=== PATIENT | male | born 1965 | race African-American/Black ===

== ENCOUNTER → 2022-09-26 | Outpatient (REF) | payer MEDICARE, MEDICAID ==
[2022-09-28 19:08] LABS: TESTOSTERONE FREE (DIRECT) 9.8 pg/mL (7.2-24.0)
== END ==
LOC: M LAB REF 16:45
PROVIDERS: ATTEND Nurse Practitioner Family
DX: F52.21 Male erectile disorder (principal)

== ENCOUNTER → 2023-01-12 | Outpatient (REF) | payer MEDICARE, MEDICAID ==
[2023-01-12 18:35] LABS: CHOLESTEROL RISK RATIO 4.03 (<5); HDL CHOLESTEROL 36.7 MG/DL (>40); LDL CHOLESTEROL 70.3 MG/DL (<100)
== END ==
LOC: M LAB REF 16:41
PROVIDERS: ATTEND Nurse Practitioner Family
DX: E78.5 Hyperlipidemia, unspecified (principal)

== ENCOUNTER → 2023-03-09 | Outpatient (CLI) | payer OTHER, MEDICAID | LOC: M PLARAD 14:15 | PROVIDERS: ATTEND Orthopaedic Surgery | DX: M25.562 Pain in left knee (principal); S83.512D Sprain of anterior cruciate ligament of left knee, subsequent encounter; S83.232A Complex tear of medial meniscus, current injury, left knee, initial encounter; X58.XXXA Exposure to other specified factors, initial encounter; Y92.9 Unspecified place or not applicable; Y93.9 Activity, unspecified; Y99.9 Unspecified external cause status; M94.262 Chondromalacia, left knee ==

== ENCOUNTER → 2023-05-23 | Outpatient (REF) | payer OTHER, MEDICAID ==
[2023-05-23 17:51] LABS: CHOLESTEROL RISK RATIO 4.94 (<5); HDL CHOLESTEROL 27.7 MG/DL (>40); LDL CHOLESTEROL 80.9 MG/DL (<100); NON-HDL-C 109.3 MG/DL
== END ==
LOC: M LAB REF 16:37
PROVIDERS: ATTEND Nurse Practitioner Family
DX: E78.5 Hyperlipidemia, unspecified (principal)

== ENCOUNTER 2023-09-16 01:40 | Emergency (ER) | payer MEDICARE, MEDICAID ==
[~2023-09-16] VITALS: Ht 170.2 cm; Wt 90.0 kg
[2023-09-16] MEDS ORDERED: NS 1,000 ML IV ONE ×3 (01:50→03:25)
[2023-09-16 02:16] LABS: VENOUS BASE EXCESS -10.2 (-2.0-2.0); VENOUS O2 SATURATION 99.2 % (60.0-80.0); VENOUS PARTIAL PRESSURE O2 209.6 mmHg (30.0-50.0); VENOUS PH 7.225 UNITS (7.330-7.430); VENOUS STANDARD HCO3 16.6 MMOL/L; VENOUS TOTAL CO2 18.3 MMOL/L (24.0-28.0)
[2023-09-16 02:23] LABS: BASO # 0.1 10^3/uL (0.0-0.2); BASO % 0.6 % (0.0-1.0); EOS # 0.2 10^3/uL (0.0-0.5); EOS % 2.3 % (0.0-3.0); HEMATOCRIT 46.3 % (42.0-52.0); LYMPH # 3.1 10^3/uL (1.5-5.0); LYMPH % 36.6 % (24.0-44.0); MEAN CORPUSCULAR HEMOGLOBIN 27.9 pg (27.0-33.0); MEAN CORPUSCULAR HGB CONC 32.4 g/dl (32.0-36.5); MEAN CORPUSCULAR VOLUME 86.2 fl (80.0-96.0); MONO # 0.6 10^3/uL (0.0-0.8); MONO % 7.2 % (2.0-8.0); NEUTROPHILS # 4.5 10^3/uL (1.5-8.5); NEUTROPHILS % 53.1 % (36.0-66.0); PLATELET COUNT, AUTOMATED 243 10^3/uL (150-450); RED BLOOD COUNT 5.37 10^6/uL (4.30-6.10); WHITE BLOOD COUNT 8.4 10^3/uL (4.0-10.0)
[2023-09-16 02:43] LABS: AMPHETAMINES LEVEL URINE NEGATIVE (NEGATIVE); BARBITURATES URINE NEGATIVE (NEGATIVE); COCAINE METABOLITE URINE NEGATIVE (NEGATIVE); METHADONE URINE NEGATIVE (NEGATIVE); OPIATES URINE NEGATIVE (NEGATIVE); PHENCYCLIDINE URINE NEGATIVE (NEGATIVE)
[2023-09-16 02:45] LABS: ETHYL ALCOHOL (ETHANOL) 0.007 % (0.000-0.010)
[2023-09-16 02:47] LABS: ALBUMIN 3.7 G/DL (3.2-5.2); ALKALINE PHOSPHATASE 81 U/L (46-116); ALT/SGPT 21 U/L (7.0-40); AST/SGOT 19 U/L (<34); BILIRUBIN,DIRECT < 0.1 MG/DL (<0.4); BILIRUBIN,TOTAL 0.2 MG/DL (0.3-1.2); BLOOD UREA NITROGEN 16 MG/DL (9-23); CALCIUM LEVEL 8.5 MG/DL (8.5-10.1); CARBON DIOXIDE LEVEL 18 MMOL/L (20-31); CHLORIDE LEVEL 102 MMOL/L (98-107); CREATININE FOR GFR 1.31 MG/DL (0.70-1.30); GLOMERULAR FILTRATION RATE > 60.0 (>56); GLUCOSE, FASTING 139 MG/DL (60-100); POTASSIUM SERUM 3.7 MMOL/L (3.5-5.1); SALICYLATE LEVEL < 3.0 MG/DL (<30); SODIUM LEVEL 138 MMOL/L (136-145); TOTAL PROTEIN 7.5 G/DL (5.7-8.2)
[2023-09-16 02:49] LABS: BENZODIAZEPINES URINE POSITIVE (NEGATIVE); CANNABINOIDS URINE POSITIVE (NEGATIVE); THYROID STIMULATING HORMONE 5.628 uIU/ML (0.55-4.78)
[2023-09-16 03:37] LABS: HIV SCREEN CENTAUR SOURCE NEGATIVE (NEGATIVE)
[2023-09-16 03:44] LABS: HEPATITIS C VIRUS ABY INDEX 0.06 INDEX (<0.8)
[2023-09-16] MEDS ORDERED: D5W IV ONE (04:00)
[2023-09-16] MEDS ORDERED: LEVETIRACETAM IV ONE (04:00)
[2023-09-16] MEDS ORDERED: PERCOCET 5MG/325MG TAB PO ONE (05:30)
[2023-09-16 06:33] LABS: BLOOD UREA NITROGEN 13 MG/DL (9-23); CALCIUM LEVEL 7.8 MG/DL (8.5-10.1); CARBON DIOXIDE LEVEL 25 MMOL/L (20-31); CHLORIDE LEVEL 108 MMOL/L (98-107); CREATININE FOR GFR 1.12 MG/DL (0.70-1.30); GLOMERULAR FILTRATION RATE > 60.0 (>56); GLUCOSE, FASTING 119 MG/DL (60-100); POTASSIUM SERUM 4.2 MMOL/L (3.5-5.1); SODIUM LEVEL 141 MMOL/L (136-145)
[2023-09-16] MEDS ORDERED: PERC5TAB12 PO (06:52)
[2023-09-16 07:56] VITALS: BP 158/86; TEMP 98.3; O2SAT 96
== END 2023-09-16 09:30 | disposition home or self-care (01) ==
LOC: M ED 01:40 → EDBD 01:40 → M ED 09:30
DX: S00.03XA Contusion of scalp, initial encounter (principal); G40.909 Epilepsy, unspecified, not intractable, without status epilepticus; E78.5 Hyperlipidemia, unspecified; I10 Essential (primary) hypertension; I45.19 Other right bundle-branch block; F12.10 Cannabis abuse, uncomplicated; F10.10 Alcohol abuse, uncomplicated; Z91.048 Other nonmedicinal substance allergy status; Z79.891 Long term (current) use of opiate analgesic
CPT/HCPCS: 70450; 70486; 71045; 72125; 80048; 80076; 80143; 80180; 80307; 82077; 82140; 82803; 83605; 84443; 85025; 86803; 87040; 87340; 87389; 93005; 93041; 94760; 96361; 96365; 99284; J1953

== ENCOUNTER 2023-12-03 08:36 | Day surgery (SDC) | payer MEDICARE, MEDICAID ==
[~2023-12-03] VITALS: Ht 177.8 cm; Wt 92.8 kg
[~2023-12-03 08:36] MED LIST: ATOR40TA75 PO; CEFUROXIME 1MG/0.1ML INTRACAMERAL INJ As Ordered ONE; CYCLOPENTOLATE 1% OPHTH SOLN 2ML BTL OS SCH; FLURBIPROFEN 0.03% OPHTH SOLN 2.5 ML OS SCH; GABA-282 PO; HYDR-3363 PO; HYDR-3490 PO; LEVE500T5 PO; LIDOCAINE 1% SDV 5ML VIAL As Ordered ONE; LR 1,000 ML IV SCH; PERC5TAB12 PO; PHENYLEPHRINE 2.5% OPHTH SOL 2ML OS SCH; SERT25TA21 PO; TADA5TAB PO; TETRACAINE 0.5% OPHTH SOLN 4ML OS SCH
[2023-12-03] MEDS ORDERED: MIDAZOLAM INJ 2MG/2ML VIAL As Ordered ONE (09:24)
[2023-12-03 11:21] VITALS: BP 111/81; TEMP 97.8; O2SAT 98
== END 2023-12-03 11:40 | disposition home or self-care (01) ==
LOC: M SDC 08:36
PROVIDERS: ATTEND Ophthalmology
DX: H25.12 Age-related nuclear cataract, left eye (principal); I10 Essential (primary) hypertension; E78.5 Hyperlipidemia, unspecified; Z79.899 Other long term (current) drug therapy; F17.218 Nicotine dependence, cigarettes, with other nicotine-induced disorders; G40.909 Epilepsy, unspecified, not intractable, without status epilepticus
CPT/HCPCS: 66984; J0697; J2250; V2632

== ENCOUNTER 2023-12-24 08:32 | Day surgery (SDC) | payer MEDICARE, MEDICAID ==
[~2023-12-24] VITALS: Ht 177.8 cm; Wt 93.1 kg
[~2023-12-24 08:32] MED LIST changes: -CEFUROXIME 1MG/0.1ML INTRACAMERAL INJ As Ordered ONE; -CYCLOPENTOLATE 1% OPHTH SOLN 2ML BTL OS SCH; -FLURBIPROFEN 0.03% OPHTH SOLN 2.5 ML OS SCH; -LIDOCAINE 1% SDV 5ML VIAL As Ordered ONE; -PHENYLEPHRINE 2.5% OPHTH SOL 2ML OS SCH; -TETRACAINE 0.5% OPHTH SOLN 4ML OS SCH
[2023-12-24] MEDS: PHENYLEPHRINE 2.5% OPHTH SOL 2ML OD SCH (09:42)
[2023-12-24] MEDS: TETRACAINE 0.5% OPHTH SOLN 4ML OD SCH (09:42)
[2023-12-24] MEDS: FLURBIPROFEN 0.03% OPHTH SOLN 2.5 ML OD SCH (09:42)
[2023-12-24] MEDS: CYCLOPENTOLATE 1% OPHTH SOLN 2ML BTL OD SCH (09:42)
[2023-12-24] MEDS: LIDOCAINE 1% SDV 5ML VIAL As Ordered ONE (11:40)
[2023-12-24] MEDS: CEFUROXIME 1MG/0.1ML INTRACAMERAL INJ As Ordered ONE (11:44)
[2023-12-24] MEDS ORDERED: MIDAZOLAM INJ 2MG/2ML VIAL As Ordered ONE (11:53)
[2023-12-24 12:00] VITALS: BP 139/79; TEMP 97.1; O2SAT 99
== END 2023-12-24 12:24 | disposition home or self-care (01) ==
LOC: M SDC 08:32
PROVIDERS: ATTEND Ophthalmology
DX: H25.11 Age-related nuclear cataract, right eye (principal); I10 Essential (primary) hypertension; E78.00 Pure hypercholesterolemia, unspecified; R56.9 Unspecified convulsions; Z79.899 Other long term (current) drug therapy; F17.210 Nicotine dependence, cigarettes, uncomplicated
CPT/HCPCS: 66984; J0697; J2250; V2632

== ENCOUNTER → 2024-03-20 | Outpatient (REF) | payer MEDICARE, MEDICAID ==
[~2024-03-20] MED LIST changes: -LR 1,000 ML IV SCH
[2024-03-20 18:10] LABS: BASO # 0.1 10^3/uL (0.0-0.2); EOS # 0.2 10^3/uL (0.0-0.5); HEMATOCRIT 44.5 % (42.0-52.0); HEMOGLOBIN 14.5 g/dl (13.5-17.5); LYMPH # 2.5 10^3/uL (1.5-5.0); LYMPH % 49.3 % (24.0-44.0); MEAN CORPUSCULAR HEMOGLOBIN 28.2 pg (27.0-33.0); MEAN CORPUSCULAR HGB CONC 32.6 g/dl (32.0-36.5); MEAN CORPUSCULAR VOLUME 86.6 fl (80.0-96.0); MONO # 0.5 10^3/uL (0.0-0.8); MONO % 10.2 % (2.0-8.0); NEUTROPHILS # 1.8 10^3/uL (1.5-8.5); NEUTROPHILS % 35.3 % (36.0-66.0); PLATELET COUNT, AUTOMATED 223 10^3/uL (150-450); RED BLOOD COUNT 5.14 10^6/uL (4.30-6.10)
[2024-03-20 18:38] LABS: ALBUMIN 3.7 G/DL (3.2-5.2); ALKALINE PHOSPHATASE 67 U/L (46-116); ALT/SGPT 29 U/L (7.0-40); AST/SGOT 21 U/L (<34); BILIRUBIN,TOTAL 0.3 MG/DL (0.3-1.2); BLOOD UREA NITROGEN 14 MG/DL (9-23); CALCIUM LEVEL 9.1 MG/DL (8.5-10.1); CARBON DIOXIDE LEVEL 31 MMOL/L (20-31); CHLORIDE LEVEL 105 MMOL/L (98-107); CHOLESTEROL LEVEL 123 MG/DL (<200); CREATININE FOR GFR 1.29 MG/DL (0.70-1.30); GLOMERULAR FILTRATION RATE > 60.0 (>56); GLUCOSE, FASTING 86 MG/DL (60-100); HDL CHOLESTEROL 36.1 MG/DL (>40); LDL CHOLESTEROL 52.5 MG/DL (<100); MAGNESIUM LEVEL 1.9 MG/DL (1.8-2.4); NON-HDL-C 86.9 MG/DL; POTASSIUM SERUM 4.4 MMOL/L (3.5-5.1); SODIUM LEVEL 139 MMOL/L (136-145); TOTAL PROTEIN 7.1 G/DL (5.7-8.2); TRIGLYCERIDES LEVEL 172 MG/DL (<150)
[2024-03-20 18:41] LABS: THYROID STIMULATING HORMONE 1.383 uIU/ML (0.55-4.78)
[2024-03-20 18:42] LABS: TOTAL 25(OH) VITAMIN D 27.8 NG/ML (20.0-100.0)
[2024-03-20 18:47] LABS: HEMOGLOBIN A1c 5.6 % (4.0-6.0)
== END ==
LOC: M LAB REF 16:56
PROVIDERS: ATTEND Nurse Practitioner Family
DX: E55.9 Vitamin D deficiency, unspecified (principal); E66.3 Overweight; Z79.899 Other long term (current) drug therapy

== ENCOUNTER 2024-06-10 09:26 | Emergency (ER) | payer MEDICARE, MEDICAID ==
[~2024-06-10] VITALS: Ht 177.8 cm; Wt 88.7 kg
[2024-06-10 12:06] LABS: BASO # 0.1 10^3/uL (0.0-0.2); BASO % 0.8 % (0.0-1.0); EOS # 0.2 10^3/uL (0.0-0.5); EOS % 2.2 % (0.0-3.0); HEMATOCRIT 50.8 % (42.0-52.0); HEMOGLOBIN 17.6 g/dl (13.5-17.5); LYMPH # 2.4 10^3/uL (1.5-5.0); LYMPH % 32.2 % (24.0-44.0); MEAN CORPUSCULAR HEMOGLOBIN 29.2 pg (27.0-33.0); MEAN CORPUSCULAR HGB CONC 34.6 g/dl (32.0-36.5); MEAN CORPUSCULAR VOLUME 84.2 fl (80.0-96.0); MONO # 0.9 10^3/uL (0.0-0.8); NEUTROPHILS # 3.9 10^3/uL (1.5-8.5); NEUTROPHILS % 52.5 % (36.0-66.0); PLATELET COUNT, AUTOMATED 189 10^3/uL (150-450); RED BLOOD COUNT 6.03 10^6/uL (4.30-6.10); WHITE BLOOD COUNT 7.4 10^3/uL (4.0-10.0)
[2024-06-10 12:15] LABS: ERYTHROCYTE SEDIMENTATION RATE 101 mm/hr (0-20)
[2024-06-10 12:21] VITALS: BP 141/84; TEMP 98.3; O2SAT 97
[2024-06-10 12:40] LABS: BLOOD UREA NITROGEN 17 MG/DL (9-23); CALCIUM LEVEL 9.7 MG/DL (8.5-10.1); CARBON DIOXIDE LEVEL 23 MMOL/L (20-31); CHLORIDE LEVEL 100 MMOL/L (98-107); CREATININE FOR GFR 1.13 MG/DL (0.70-1.30); GLOMERULAR FILTRATION RATE > 60.0 (>56); GLUCOSE, FASTING 105 MG/DL (60-100); POTASSIUM SERUM 4.5 MMOL/L (3.5-5.1); SODIUM LEVEL 135 MMOL/L (136-145)
[2024-06-10] MEDS: KETOROLAC 30 MG/ML 1ML VIAL IV ONE (13:19)
== END 2024-06-10 13:53 | disposition home or self-care (01) ==
LOC: EDBD 09:26 → M ED 09:26
DX: I82.612 Acute embolism and thrombosis of superficial veins of left upper extremity (principal); M25.722 Osteophyte, left elbow; E11.9 Type 2 diabetes mellitus without complications; I10 Essential (primary) hypertension; E78.5 Hyperlipidemia, unspecified; R56.9 Unspecified convulsions; F17.200 Nicotine dependence, unspecified, uncomplicated; Z79.899 Other long term (current) drug therapy
CPT/HCPCS: 73080; 76882; 80048; 85025; 85652; 86140; 96374; 99284; J1885

== ENCOUNTER → 2024-07-16 | Outpatient (REF) | payer MEDICARE, MEDICAID ==
[2024-07-16 19:40] LABS: ALKALINE PHOSPHATASE 80 U/L (46-116); ALT/SGPT 26 U/L (7.0-40); AST/SGOT 19 U/L (<34); BILIRUBIN,TOTAL 0.5 MG/DL (0.3-1.2); BLOOD UREA NITROGEN 9 MG/DL (9-23); CALCIUM LEVEL 10.1 MG/DL (8.5-10.1); CARBON DIOXIDE LEVEL 31 MMOL/L (20-31); CHLORIDE LEVEL 105 MMOL/L (98-107); CREATININE FOR GFR 1.23 MG/DL (0.70-1.30); GLOMERULAR FILTRATION RATE > 60.0 (>56); GLUCOSE, FASTING 82 MG/DL (60-100); MAGNESIUM LEVEL 2.3 MG/DL (1.8-2.4); POTASSIUM SERUM 4.1 MMOL/L (3.5-5.1); SODIUM LEVEL 139 MMOL/L (136-145); TOTAL PROTEIN 8.3 G/DL (5.7-8.2)
== END ==
LOC: M LAB REF 16:45
PROVIDERS: ATTEND Nurse Practitioner Family
DX: R51.9 Headache, unspecified (principal)

== ENCOUNTER → 2024-09-30 | Outpatient (CLI) | payer MEDICARE, MEDICAID ==
[~2024-09-30] MED LIST changes: +GABA-1172 PO; -GABA-282 PO
== END ==
LOC: M RAD 11:51
PROVIDERS: ATTEND Nurse Practitioner Family
DX: M54.50 Low back pain, unspecified (principal); M25.562 Pain in left knee; M17.12 Unilateral primary osteoarthritis, left knee; M85.88 Other specified disorders of bone density and structure, other site

== ENCOUNTER → 2024-10-28 | Outpatient (CLI) | payer MEDICARE, MEDICAID ==
[~2024-10-28] MED LIST changes: -TADA5TAB PO; +TADA5TAB94 PO
== END ==
LOC: M RAD 06:47
PROVIDERS: ATTEND Physician Assistant Surgical
DX: S52.591A Other fractures of lower end of right radius, initial encounter for closed fracture (principal); W18.30XA Fall on same level, unspecified, initial encounter; Y92.009 Unspecified place in unspecified non-institutional (private) residence as the place of occurrence of the external cause

== ENCOUNTER → 2024-12-30 | Outpatient (REF) | payer MEDICARE, MEDICAID | LOC: M LAB REF 16:27 | PROVIDERS: ATTEND Nurse Practitioner Family | DX: R39.9 Unspecified symptoms and signs involving the genitourinary system (principal) ==

== ENCOUNTER → 2025-08-21 | Outpatient (CLI) | payer MEDICARE, MEDICAID ==
[~2025-08-21] MED LIST changes: +TADA5TAB2 PO; -TADA5TAB94 PO
== END ==
LOC: M RAD 09:09
PROVIDERS: ATTEND Physician Assistant
DX: S83.232D Complex tear of medial meniscus, current injury, left knee, subsequent encounter (principal); S83.512A Sprain of anterior cruciate ligament of left knee, initial encounter; S83.412D Sprain of medial collateral ligament of left knee, subsequent encounter; X58.XXXA Exposure to other specified factors, initial encounter; Y92.9 Unspecified place or not applicable; Y93.9 Activity, unspecified; Y99.9 Unspecified external cause status

== ENCOUNTER → 2025-09-25 | Outpatient (REF) | payer MEDICARE, MEDICAID ==
[2025-09-25 16:52] LABS: ALT/SGPT 19.0 U/L (7.0-40); AST/SGOT 17.0 U/L (<34); CALCIUM LEVEL 8.7 MG/DL (8.5-10.1); CARBON DIOXIDE LEVEL 31.0 MMOL/L (20-31); CHLORIDE LEVEL 105.0 MMOL/L (98-107); CHOLESTEROL LEVEL 189.0 MG/DL (<200); CHOLESTEROL RISK RATIO 6.94 (<5); CREATININE FOR GFR 1.23 MG/DL (0.70-1.30); GLOMERULAR FILTRATION RATE 67.6 (>56); LDL CHOLESTEROL 101.2 MG/DL (<100); NON-HDL-C 161.8 MG/DL; POTASSIUM SERUM 4.3 MMOL/L (3.5-5.1); SODIUM LEVEL 141.0 MMOL/L (136-145); TRIGLYCERIDES LEVEL 303.0 MG/DL (<150)
== END ==
LOC: M LAB REF 16:21
PROVIDERS: ATTEND Physician Assistant
DX: E78.5 Hyperlipidemia, unspecified (principal)